=== PATIENT | male | born 1960 | race Caucasian/White ===

== ENCOUNTER → 2016-10-14 | Outpatient (CLI) | payer BC, OTHER ==
[~2016-10-14] MED LIST: ASPI81TA21 PO; ATOR-22 PO; CHOL400C7 PO; FISHOIL PO; LISI-461 PO; MULTTAB58 PO
[2016-10-14 13:37] LABS: ESTIMATED AVERAGE GLUCOSE 120 mg/dl; HA1C FLAG Normal (Normal)
[2016-10-14 13:39] LABS: ALT/SGPT 83 U/L (12-78); AST/SGOT 51 U/L (15-37); BLOOD UREA NITROGEN 18 mg/dl (7-18); BUN/CREATININE RATIO 15.2 (10-20); CALCIUM 9.1 mg/dl (8.5-10.1); CARBON DIOXIDE 27 mmol/L (21-32); CHLORIDE 103 mmol/L (98-107); CHOLESTEROL 230 mg/dl (0-200); GLUCOSE 113 mg/dl (70-99); POTASSIUM 4.3 mmol/L (3.5-5.1); SODIUM 141 mmol/L (136-145); TRIGLYCERIDES 368 mg/dl (0-150); VERY LOW DENSITY LIPOPROT CALC 74 mg/dl
[2016-10-14 13:42] LABS: CHOLESTEROL/HDL RATIO 4.5; HDL CHOLESTEROL 51 mg/dl; LDL CHOLESTEROL CALCULATED 105 mg/dl
== END | disposition home or self-care (01) ==
LOC: C.LABPVFM 10:20
PROVIDERS: ATTEND Family Medicine
DX: E78.5 Hyperlipidemia, unspecified (principal); I10 Essential (primary) hypertension; R73.09 Other abnormal glucose

== ENCOUNTER → 2017-06-09 | Outpatient (CLI) | payer BC ==
[2017-06-09 13:39] LABS: ALT/SGPT 83 U/L (12-78); BLOOD UREA NITROGEN 23 mg/dl (7-18); CALCIUM 9.6 mg/dl (8.5-10.1); CARBON DIOXIDE 24 mmol/L (21-32); CHLORIDE 103 mmol/L (98-107); CHOLESTEROL 259 mg/dl (0-200); GLUCOSE 131 mg/dl (70-99); POTASSIUM 4.2 mmol/L (3.5-5.1); SODIUM 138 mmol/L (136-145); TRIGLYCERIDES 644 mg/dl (0-150)
[2017-06-09 13:41] LABS: AST/SGOT 52 U/L (15-37)
[2017-06-09 13:49] LABS: CHOLESTEROL/HDL RATIO 6.2; HDL CHOLESTEROL 42 mg/dl
== END | disposition home or self-care (01) ==
LOC: C.LABPVFM 09:23
PROVIDERS: ATTEND Family Medicine
DX: E78.5 Hyperlipidemia, unspecified (principal); I10 Essential (primary) hypertension

== ENCOUNTER → 2017-07-02 | Outpatient (CLI) | payer BC ==
--- NOTE | 2017-07-02 09:23 | DIAGNOSTIC IMAGING REPORT ---
ABDOMINAL ULTRASOUND COMPLETE HISTORY: R79.89 Abnormal LFTs elev. lipids also trigs 600+ eval pancreas al. COMPARISON: None. FINDINGS: Pancreas: The pancreas demonstrates a normal echotexture. Liver: The liver is echogenic consistent with fatty change. 19 m in length. Small area of focal fatty sparing adjacent to the gallbladder fossa. Gallbladder: No gallbladder wall thickening. No gallstones. CBD: 4 mm. Kidneys: No hydronephrosis. Mild cortical lobulation/scarring bilaterally. Spleen: Normal in size. Aorta: Normal in caliber. Mild scattered calcified plaque. IVC: Patent. IMPRESSION: 1. The pancreas is within normal limits. 2. Mild hepatomegaly demonstrating fatty change. Electronically signed by: Dwayne Vivar M.D. 07/02/2017 9:22 AM Dictated Date/Time: 07/02/2017 9:16 AM
== END | disposition home or self-care (01) ==
LOC: C.ULTR 08:39
PROVIDERS: ATTEND Family Medicine
DX: R79.89 Other specified abnormal findings of blood chemistry (principal); R16.0 Hepatomegaly, not elsewhere classified

== ENCOUNTER → 2017-08-24 | Outpatient (CLI) | payer BC ==
[2017-08-24 18:30] LABS: ALT/SGPT 54 U/L (12-78); AST/SGOT 30 U/L (15-37); BLOOD UREA NITROGEN 25 mg/dl (7-18); BUN/CREATININE RATIO 19.4 (10-20); CALCIUM 9.2 mg/dl (8.5-10.1); CARBON DIOXIDE 26 mmol/L (21-32); CHLORIDE 105 mmol/L (98-107); GLUCOSE 115 mg/dl (70-99); POTASSIUM 4.3 mmol/L (3.5-5.1); SODIUM 136 mmol/L (136-145)
[2017-08-24 18:33] LABS: ALKALINE PHOSPHATASE 80 U/L (45-117)
[2017-08-25 07:06] LABS: ESTIMATED AVERAGE GLUCOSE 131 mg/dl; HA1C FLAG Normal (Normal)
== END | disposition home or self-care (01) ==
LOC: C.LABPVFM 15:42
PROVIDERS: ATTEND Family Medicine
DX: R79.89 Other specified abnormal findings of blood chemistry (principal); R73.09 Other abnormal glucose

== ENCOUNTER → 2017-09-20 | Outpatient (CLI) | payer BC ==
[~2017-09-20] MED LIST changes: +ASPI-319 PO; -ASPI81TA21 PO
--- NOTE | 2017-09-20 12:16 | DIAGNOSTIC IMAGING REPORT ---
R FOOT MIN 3 VIEWS ROUTINE CLINICAL HISTORY: FOOT PAIN R pain COMPARISON: None. DISCUSSION: The bones and joint spaces appear intact. There is no evidence of fracture, dislocation or bony disease. Heel spur. IMPRESSION: Heel spur. Otherwise negative study. The above report was generated using voice recognition software. It may contain grammatical, syntax or spelling errors. Electronically signed by: Angel Castle M.D. 09/20/2017 12:14 PM Dictated Date/Time: 09/20/2017 12:13 PM
== END | disposition home or self-care (01) ==
LOC: C.RADPV 11:55
PROVIDERS: ATTEND Nurse Practitioner Family
DX: M77.31 Calcaneal spur, right foot (principal)

== ENCOUNTER → 2018-01-22 | Outpatient (CLI) | payer BC ==
[2018-01-22 13:28] LABS: ALBUMIN 3.8 gm/dl (3.4-5.0); ALT/SGPT 63 U/L (12-78); AST/SGOT 36 U/L (15-37); BLOOD UREA NITROGEN 20 mg/dl (7-18); CALCIUM 9.2 mg/dl (8.5-10.1); CARBON DIOXIDE 24 mmol/L (21-32); CREATININE 1.23 mg/dl (0.60-1.40); GLUCOSE 127 mg/dl (70-99); SODIUM 136 mmol/L (136-145)
[2018-01-22 13:30] LABS: ALKALINE PHOSPHATASE 77 U/L (45-117); TOTAL PROTEIN 7.8 gm/dl (6.4-8.2)
== END | disposition home or self-care (01) ==
LOC: C.LABPVFM 08:03
PROVIDERS: ATTEND Family Medicine
DX: E78.5 Hyperlipidemia, unspecified (principal); I10 Essential (primary) hypertension; R73.01 Impaired fasting glucose; J45.909 Unspecified asthma, uncomplicated

== ENCOUNTER 2023-09-03 10:57 | Observation (INO) ==
--- NOTE | 2023-08-08 11:15 | PAT Medication Instructions ---
Medication Instructions Date of Service August 08, 2023 Home Medications Medication Instructions Recorded blood-glucose meter (OneTouch #1 ea 08/12/19 Ultra2 Meter) blood sugar diagnostic (OneTouch #50 ea 03/11/20 Ultra Blue Test Strip) lancets (OneTouch UltraSoft #50 ea 03/11/20 Lancets) probenecid 500 mg-colchicine 0.5 1 tab PO BID PRN gout #60 tabs 03/11/20 mg tablet albuterol sulfate 90 mcg/actuation 1 inh inhalation QID PRN shortness 12/27/22 aerosol inhaler (Ventolin HFA) of breath or wheezing #18 grams labetalol 100 mg tablet 100 mg PO TID #270 tabs 06/05/23 probenecid 500 mg-colchicine 0.5 mg tablet 1 tab PO BID PRN gout albuterol sulfate 90 mcg/actuation aerosol inhaler (Ventolin HFA) 1 inh inhalation QID PRN shortness of breath or wheezing labetalol 100 mg tablet 100 mg PO TID allopurinol 100 mg tablet 100 mg PO QPM amlodipine 5 mg tablet 5 mg PO QAM aspirin 81 mg chewable tablet 81 mg PO QAM atorvastatin 40 mg tablet 40 mg PO QPM cholecalciferol (vitamin D3) 25 mcg (1,000 unit) capsule (Vitamin D3) 25 mcg PO QPM fenofibrate nanocrystallized 145 mg tablet 145 mg PO QPM lisinopril 40 mg tablet 40 mg PO QAM metformin 500 mg tablet 500 mg PO QAM multivitamin 1 tab PO QAM omega 7-ghz-lgj-fish oil 1,200 mg (144 mg-216 mg) capsule (Fish Oil) 2,400 cap PO QAM ASK your prescriber and surgeon aspirin 81 mg chewable tablet 81 mg PO QAM STOP taking 2 weeks before surgery (or as soon as possible if surgery is within 2 weeks) omega 4-ckk-gvn-fish oil 1,200 mg (144 mg-216 mg) capsule (Fish Oil) 2,400 cap PO QAM STOP taking 48 hours before surgery probenecid 500 mg-colchicine 0.5 mg tablet 1 tab PO BID PRN gout fenofibrate nanocrystallized 145 mg tablet 145 mg PO QPM DO NOT take the morning of surgery lisinopril 40 mg tablet 40 mg PO QAM metformin 500 mg tablet 500 mg PO QAM multivitamin 1 tab PO QAM Take morning of surgery With a small sip of water, OTHERWISE NOTHING TO EAT OR DRINK AFTER MIDNIGHT: albuterol sulfate 90 mcg/actuation aerosol inhaler (Ventolin HFA) 1 inh inhalation QID PRN shortness of breath or wheezing (use if needed; please bring rescue inhaler with you to hospital day of surgery if possible) labetalol 100 mg tablet 100 mg PO TID amlodipine 5 mg tablet 5 mg PO QAM Take evening before surgery albuterol sulfate 90 mcg/actuation aerosol inhaler (Ventolin HFA) 1 inh inhalation QID PRN shortness of breath or wheezing (if needed) labetalol 100 mg tablet 100 mg PO TID allopurinol 100 mg tablet 100 mg PO QPM atorvastatin 40 mg tablet 40 mg PO QPM cholecalciferol (vitamin D3) 25 mcg (1,000 unit) capsule (Vitamin D3) 25 mcg PO QPM Other Notes If you have any questions please call us at [phone] or [phone] or [phone] or [phone]
--- NOTE | 2023-08-17 13:59 | Anesthesiology Consultation ---
Date of Service August 17, 2023 Assessment & Plan (1) Encounter for pre-operative examination: - check BSG am DOS. - patient unable to provide urine specimen at PAT visit. He plans to complete UA at [facility] lab. Outpatient joint assessment: Patient is currently scheduled for inpatient pathway. If re-evaluated and patient/surgeon requests outpatient pathway, patient is acceptable candidate for outpatient joint program from anesthesia standpoint pending surgeon's office assessment of pt motivation/support/completion of same day joint program preop requirements. Chart Review Chart Review: Pending: Refer to Additional Notes / Consult section and Patient seen in Pre Admission Testing Teaching & Discussion Pre-Anesthesia Teaching/Discussion Notes: Instructed NPO after midnight before surgery, except medications with 15 cc of water. Medication instructions provided according to the [facility] guidelines. History Surgery Operation Date: 09/03/23 09:50 Proposed Procedures p Left Total Shoulder Arthroplasty, Open Subacromial Decompression, Bursectomy and Biceps Tenodesis - Aristeo Early MD Height/Weight Height: 5 ft 8 in Weight: 87.1 kg Allergies Allergy/AdvReac Type Severity Reaction Status Date / Time meloxicam Allergy Unknown Rash Verified 08/08/23 10:05 omeprazole Allergy Unknown Rash Verified 08/08/23 10:05 Medications Home Medications Medication Instructions Recorded Confirmed Last Taken blood-glucose meter (OneTouch #1 ea 08/12/19 06/28/23 Unknown Ultra2 Meter) blood sugar diagnostic (OneTouch #50 ea 03/11/20 06/28/23 Unknown Ultra Blue Test Strip) lancets (OneTouch UltraSoft #50 ea 03/11/20 06/28/23 Unknown Lancets) probenecid 500 mg-colchicine 0.5 1 tab PO BID PRN gout #60 tabs 03/11/20 08/08/23 Unknown mg tablet albuterol sulfate 90 mcg/actuation 1 inh inhalation QID PRN shortness 12/27/22 08/08/23 Unknown aerosol inhaler (Ventolin HFA) of breath or wheezing #18 grams labetalol 100 mg tablet 100 mg PO TID #270 tabs 06/05/23 08/08/23 Unknown allopurinol 100 mg tablet 100 mg PO QPM 08/08/23 08/08/23 Unknown amlodipine 5 mg tablet 5 mg PO QAM 08/08/23 08/08/23 Unknown aspirin 81 mg chewable tablet 81 mg PO QAM 08/08/23 08/08/23 Unknown atorvastatin 40 mg tablet 40 mg PO QPM 08/08/23 08/08/23 Unknown cholecalciferol (vitamin D3) 25 25 mcg PO QPM 08/08/23 08/08/23 Unknown mcg (1,000 unit) capsule (Vitamin D3) fenofibrate nanocrystallized 145 145 mg PO QPM 08/08/23 08/08/23 Unknown mg tablet lisinopril 40 mg tablet 40 mg PO QAM 08/08/23 08/08/23 Unknown metformin 500 mg tablet 500 mg PO QAM 08/08/23 08/08/23 Unknown multivitamin 1 tab PO QAM 08/08/23 08/08/23 Unknown omega 6-vco-sbj-fish oil 1,200 mg 2,400 cap PO QAM 08/08/23 08/08/23 Unknown (144 mg-216 mg) capsule (Fish Oil) cetirizine 10 mg tablet 10 mg PO QAM PRN allergies 08/17/23 08/17/23 Unknown Additional Notes: Patient also takes cetirizine prn seasonal allergies. He was instructed and it was written on provided medication instructions to not take cetirizine DOS. He verbalized understanding and agreement, denied questions, concerns or additional medications. Past Medical History Medical History (Updated 08/17/23 @ 14:10 by Holly Rico PA-C) History of gout last episode several yrs ago Prediabetes on metformin HLD (hyperlipidemia) HTN (hypertension) controlled, stable per pt; white coat HTN Asthma rare use of PRN inh; last rescue inhaler use several months ago Diverticulosis denies hx diverticulitis Patient denies h/o stroke, seizures, heart attack, heart failure, blood clots/DVTs or blood transfusions. Exercise / Class Metabolic Activity II 4-5 Yardwork/Stairs/Walk up hill (denies chest discomfort or shortness of breath with 1 FOS) Past Family History Family History Mother Colorectal cancer Father Myocardial infarction Denies family history of Ovarian cancer Prostate cancer Breast cancer Past Surgical History Surgical History (Updated 08/17/23 @ 14:11 by Holly M. Onink, PA-C) History of vasectomy History of colonoscopy History of cataract surgery 08/22/10-Left 02/24/13-Right H/O thumb surgery 08/26/08-Left H/O wrist surgery 08/2010-Right Biceps tendon tear Repair-06/22/03 History of knee surgery 10/23/01-Left (Meniscus Repair) 08/30/05-Right (Meniscus Repair) History of rotator cuff surgery 08/26/08-Left 07/21/13-Right 05/27/19-Left Past Anesthesia History No Hx of Anesthesia Complications and No Family Hx of Anesthesia Complications History of PONV No Hx of PONV and No Hx of Motion Sickness Social History Smoking Status: Former smoker Do You Dip or Chew Tobacco: No Smoking End Date: 50 years ago Hx Alcohol Use: Yes Alcohol type: beer and wine alcohol intake frequency: a few times a week Hx Substance Use: No substance use type: does not use Review of Systems Patient denies chest pain, shortness of breath, dyspnea on exertion, snoring, witnessed apneas, reflux, fever, chills, cough, wheezing, or palpitations. Physical Exam Vital Signs Vitals BP 125/84 P 74 TEMP 98.1 SP02 97% on RA RESP 18 Physical Patient resting comfortably in chair in no acute distress, alert and oriented, responding appropriately throughout visit Full cervical extension range of motion without pain TMD 3.5 finger breadths Mallampati Score 1 Dentition: several caps/crowns, denies chipped or loose teeth, implants or bridges Lungs: normal respiratory effort. Good air movement, clear throughout to auscultation, no adventitious breath sounds Cardiac: regular rate and rhythm, no murmurs noted Carotid arteries: negative bruit bilat Lab Results Anesthesia Preop Results Results Anesthesia Widget: WBC 5.78 K/ul (4.8-10.8) 08/17/23 Hgb 13.1 g/dl (14.0-18.0) L 08/17/23 Hct 37.8 % (42.0-52.0) L 08/17/23 Plt 262 K/uL (130-400) 08/17/23 Na 139 mmol/L (136-145) 08/17/23 K 4.2 mmol/L (3.5-5.1) 08/17/23 Cl 106 mmol/L (98-107) 08/17/23 CO2 25 mmol/L (21-32) 08/17/23 BUN 29 mg/dl (6-23) H 08/17/23 Creat 1.43 mg/dl (0.6-1.4) H 08/17/23 Glucose Level 124 mg/dl (70-99(Fasting)) H 08/17/23 PT 10.7 Seconds (9.0-12.0) 08/17/23 PTT 31.6 Seconds (21.0-31.0) H 08/17/23 INR 1.0 (0.9-1.1) 08/17/23 TSH 3.529 uIu/ml (0.300-4.500) 06/26/23 HA1c 5.9 % (4.5-5.6) H 06/26/23 Blood Type O Negative 08/17/23 Antibody Screen NEGATIVE 08/17/23 Testing Laboratory Results A1c 06/26/23: 5.9% Electrocardiogram Date: 08/17/23 NSR, rate 70 bpm Chest X-Ray Date: 08/17/23 1. No active disease in the chest. 2. There is apparent subluxation of the left humeral head. Correlate clinically.
--- NOTE | 2023-08-25 08:45 | History & Physical Report ---
Date of Service August 25, 2023 Assessment & Plan (1) Primary osteoarthritis, left shoulder: Plan: Treatment options discussed with the patient and they wish to proceed with surgical management. Risks, benefits and alternatives to surgery including but not limited to infection, DVT, pain, stiffness, need for revision surgery, damage to blood vessels, damage to nerves, PE, , were discussed with the patient and they wish to proceed. Plan for left total shoulder arthroplasty, subacromial decompression, bursectomy, biceps tenodesis scheduled for September 03 at [facility] with Dr. Early. All questions answered. Patient will follow-up postoperatively. History of Present Illness Chief Complaint: Left shoulder pain Primary Care Provider: Eris Prieto, 63-year-old male with past medical history significant for asthma, high cholesterol, hypertension who presents with ongoing left shoulder pain. Pain is interfering with his daily activities. He has prior history of arthroscopy with rotator cuff repair. He would like to proceed with surgical management. Patient denies headaches, sweats, fevers, chills, double vision, blurred vision, cough, sore throat, dysphagia, chest pain, sob, wheezing, n/v/d/c, numbness, tingling, fatigue, urinary symptoms, mood disorders. ROS positive for left shoulder pain and stiffness. Allergies Allergy/AdvReac Type Severity Reaction Status Date / Time meloxicam Allergy Unknown Rash Verified 08/21/23 13:56 omeprazole Allergy Unknown Rash Verified 08/21/23 13:56 Home Medications Medication Instructions Recorded Confirmed Type blood-glucose meter (OneTouch #1 ea 08/12/19 08/21/23 Rx Ultra2 Meter) blood sugar diagnostic (OneTouch #50 ea 03/11/20 08/21/23 Rx Ultra Blue Test Strip) lancets (OneTouch UltraSoft #50 ea 03/11/20 08/21/23 Rx Lancets) probenecid 500 mg-colchicine 0.5 1 tab PO BID PRN gout #60 tabs 03/11/20 08/21/23 Rx mg tablet albuterol sulfate 90 mcg/actuation 1 inh inhalation QID PRN shortness 12/27/22 08/21/23 Rx aerosol inhaler (Ventolin HFA) of breath or wheezing #18 grams labetalol 100 mg tablet 100 mg PO TID #270 tabs 06/05/23 08/21/23 Rx allopurinol 100 mg tablet 100 mg PO QPM 08/08/23 08/21/23 History amlodipine 5 mg tablet 5 mg PO QAM 08/08/23 08/21/23 History aspirin 81 mg chewable tablet 81 mg PO QAM 08/08/23 08/21/23 History atorvastatin 40 mg tablet 40 mg PO QPM 08/08/23 08/21/23 History cholecalciferol (vitamin D3) 25 25 mcg PO QPM 08/08/23 08/21/23 History mcg (1,000 unit) capsule (Vitamin D3) fenofibrate nanocrystallized 145 145 mg PO QPM 08/08/23 08/21/23 History mg tablet lisinopril 40 mg tablet 40 mg PO QAM 08/08/23 08/21/23 History metformin 500 mg tablet 500 mg PO QAM 08/08/23 08/21/23 History multivitamin 1 tab PO QAM 08/08/23 08/21/23 History omega 8-ehc-mtk-fish oil 1,200 mg 2,400 cap PO QAM 08/08/23 08/21/23 History (144 mg-216 mg) capsule (Fish Oil) cetirizine 10 mg tablet 10 mg PO QAM PRN allergies 08/17/23 08/21/23 History Past Med/Surg History Medical History (Updated 08/25/23 @ 08:45 by Antoine Frazier PA-C) History of gout last episode several yrs ago Asthma rare use of PRN inh; last rescue inhaler use several months ago Diverticulosis denies hx diverticulitis Surgical History History of vasectomy History of colonoscopy History of cataract surgery 08/22/10-Left 02/24/13-Right H/O thumb surgery 08/26/08-Left H/O wrist surgery 08/2010-Right Biceps tendon tear Repair-06/22/03 History of knee surgery 10/23/01-Left (Meniscus Repair) 08/30/05-Right (Meniscus Repair) History of rotator cuff surgery 08/26/08-Left 07/21/13-Right 05/27/19-Left Family History Mother Colorectal cancer Father Myocardial infarction Denies family history of Ovarian cancer Prostate cancer Breast cancer Social History Smoking Status: Former smoker Age Started Using Tobacco: 16; Age Quit Using Tobacco: 19; Smoking End Date: 50 years ago; Second Hand Exposure: Yes ( smokes); Do You Dip or Chew Tobacco: No; Tobacco Cessation Education Requested by Patient: No Hx Alcohol Use: Yes Alcohol type: beer and wine Hx Substance Use: No Preferred Language: Uzbek Communication Ability: Effective Visual Impairment: No Limitations Hearing Ability: Normal Willow Machine Tender Required: No Beliefs That Will Affect Care: None marital status: Single Current Living Situation: Spouse current occupational status: employed 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 Feels Safe at Home: Yes Safety Concerns: Feels Safe At This Time caffeine: Yes Dental Care, Regularly: Yes Physical Activity Frequency: Does not Exercise Seatbelt Use: always Sunscreen Use: Yes Assistive Devices: Glasses Review of Systems All systems reviewed & are unremarkable except as noted in HPI & below Physical Exam Constitutional: well developed and well nourished; no acute distress Eyes: PERRL, conjunctivae normal, anicteric sclerae ENMT: external ear and nose normal, oropharynx normal Neck: trachea midline, no thyromegaly Respiratory: normal respiratory effort, lungs clear to auscultation Cardiovascular: RRR, no murmur, no edema Musculoskeletal: Left shoulder: Anterior glenoid tenderness. Positive impingement signs. Crepitation with range of motion. Active painful range of motion. Forward flexion and abduction and 180 degrees. Pain with strength testing. 5 -/5 abduction, 4+/5 external rotation, 5/5 internal rotation. Skin: no rashes, warm and dry Neurologic: patellar DTR's 2+ bilat, sensation intact Psychiatric: A+Ox3, euthymic affect Results & Data Diagnostic Findings Left shoulder radiographs demonstrate advanced osteoarthritis glenohumeral joint, [id number] with periarticular osteophytes. Postoperative changes consistent with prior distal clavicle excision. MRI demonstrates intact rotator cuff. There is substantial subacromial bursitis and recurrent spur..
[~2023-09-03 10:57] MED LIST changes: +ACETAMINOPHEN 500 MG TAB PO SCH; +ALLERGY Noted to ORDERED Medication SCH; -ASPI-319 PO; -ATOR-22 PO; +BUPIVACAINE 0.5 % 5 MG/1 ML PF 10ML VIAL ONE; -CHOL400C7 PO; +CeleBREX 200 MG CAP PO SCH; +DEXAMETHASONE SOD INJ 4 MG/ML VIAL ONE; +FAMOTIDINE 20 MG TAB PO SCH; -FISHOIL PO; +GABAPENTIN 300 MG CAP PO SCH; +LIDOCAINE 2% 2 ML VIAL/AMP(20MG/ML) INFIL ONE; -LISI-461 PO; +LR 15ML/HR IV SCH; +LR 60ML/HR IV SCH; +METOCLOPRAMIDE HCL 10 MG TABLET PO SCH; +MIDAZOLAM HCL 1 MG/ML 2ML VIAL ONE; -MULTTAB58 PO; +ONDANSETRON INJ 2 MG/ML 2 ML VIAL ONE; +PROPOFOL IV EMULSION 10 MG/ML 20 ML VIAL IV ONE; +ROCURONIUM BROMIDE 10 MG/ML 5 ML VIAL IV ONE; +SUGAMMADEX SODIUM 200 MG/2 ML VIAL IV ONE; +TRANEXAMIC ACID 1,000 MG **IV Intra-op IV SCH; +TRANEXAMIC ACID 1,000 MG **IV Pre-op IV SCH; +ceFAZolin 2000MG 2,000 MG/15 ML SYR IV SCH; +fentaNYL citrate PF 100 MCG/2 ML VIAL ONE
[2023-09-03] MEDS ORDERED: ATROPINE SULFATE 0.1 MG/ML 10ML SYR IV PRN (12:22)
[2023-09-03] MEDS ORDERED: ONDANSETRON INJ 2 MG/ML 2 ML VIAL IV PRN ×2 (12:22→17:33)
[2023-09-03] MEDS ORDERED: ePHEDrine sulfate 50 MG/ML AMP IV PRN (12:22)
[2023-09-03] MEDS ORDERED: fentaNYL citrate PF 100 MCG/2 ML VIAL IV PRN (12:22)
--- NOTE | 2023-09-03 12:28 | History & Physical Bridge Note ---
Date of Service September 03, 2023 History & Physical Bridge Note I have examined the patient, reviewed the History & Physical and in the interval since the performance of the History & Physical I have noted the following changes of clinical significance: no changes noted
[2023-09-03] MEDS ORDERED: EpINEphrine HCL INJ 1 MG/ML 1ML SYRINGE IR ONE (13:16)
--- NOTE | 2023-09-03 16:24 | Operative Report ---
Post Operative Report Pre & Post Diagnosis Operation Date: 09/03/23 12:30 Pre-Op Diagnosis: Left Shoulder Osteoarthritis,Subacromial Impingement Syndrome, subacromial bursitis, history of previous open subacromial decompression and status post subsequent arthroscopic rotator cuff repair including distal clavicle excision. Post-Op Diagnosis: Left Shoulder Osteoarthritis, subacromial Impingement Syndrome, subacromial bursitis Associated with old suture material post rotator cuff repair, status post history of previous open subacromial decompression and subsequent arthroscopic rotator cuff repair including distal clavicle excision with intact rotator cuff repair and biceps tenosynovitis tendinopathy with calcified degenerative glenoid labral tears. 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 Antoine LUX Estimated Blood Loss 125 Findings Consistent with Post-Op Diagnosis Specimens none Drains 2 Hemovac Anesthesia Type General Regional Complications none Disposition Disposition: Recovery Room Indications 63-year-old male with ongoing chronic left shoulder pain with history of open subacromial decompression in the past and subsequent arthroscopic rotator cuff repair years later with intact rotator cuff repair but marked subacromial bursitis recurrent spurs noted on radiographs and MRI with intact rotator cuff repair by MRI but advanced glenohumeral osteoarthritis with grade 4 osteoarthritic changes glenohumeral joint. There is also associated biceps tenosynovitis. Description of Procedure Patient was placed placed under regional block and general anesthetic. The Left upper extremity had a towel roll placed on the medial border of the scapula and translated to the side of the bed so it could be manipulated off of the bed as necessary. A foam headrest was placed and protective eyewear was placed. Lower extremities were well-padded. Patient was positioned in a beach chair position approximately 40 degrees. Shoulder exam demonstrated some generalized ligamentous laxity with full range of motion but [id number] crepitation. He had old arthroscopic scars that were healed and an old longitudinal scar across the lateral shoulder from prior open rotator cuff surgery. The Left upper extremity was prepped and draped in sterile fashion. A deltopectoral approach was performed with a longitudinal incision in a deltopectoral interval. The skin was incised sharply and the subcutaneous flaps were elevated. The cephalic vein was dissected out and retracted laterally with the deltoid. the vein was not typical in size and there were 2 branches distally that merged into a medium size vein proximally. The clavipectoral fascia was divided at the lateral margin of the conjoined tendon and extended up to the CA ligament. A self-retaining retractor was placed. Biceps findings demonstrated Large fluid collection in the biceps tendon with biceps tenosynovitis and proximal biceps tendinopathy with widening of biceps intra-articularly. there was a large bursa collection in the subacromial space that was surrounding areas of prior suture material from rotator cuff repair which was noted to be intact. Some of the suture knots were prominent and appear to be rubbing under recurrent spurs under the acromion. Specifically there was an anterior spur and there was some lateral spurring as well and under the acromion. A thorough bursectomy was performed in the subacromial space and the old sutures were removed with excisional debridement using a scalpel rongeur tenotomy scissors with all prominent sutures being removed. The periosteum and bursa on the undersurface of the acromion was resected and then a pneumatic bur was used to bur down the spurs back to the flat undersurface of the acromion and then a Tiemann rasp was used to finish off the undersurface rasping creating a smooth surface.The upper 1 cm the pectoralis was released for inferior exposure. The Biceps tendon was then tenodesed to the pectoralis with xuvexj-[id number] #2 FiberWire sutures And a whipstitch type suture repair. The chronic tenosynovitis was resected and the proximal biceps resected. Bone spurs and the bicipital groove were resected .The circumflex vessels were tied off with silk ties and divided laterally. The subscapularis muscle fibers were at the level of the circumflex vessels dissection was taken down to the capsule and a Kitner elevator was used to free up the inferior fibers of the subscapularis muscle off of the capsule and then placing a blunt Hohmann retractor protecting the axillary nerve inferiorly. A blunt Hohmann retractors were placed between the inferior located axillary nerve and the capsule. This was verified with a tug test. The rotator interval was opened up and extended down to the glenoid. The subscapularis was taken down with a transtendinous incision leaving a cuff of tissue for repair on the lesser tuberosity. The incision was carried through the subscapularis to the capsule and then subperiosteally along the inferior capsule exposing the inferior humeral osteophytes. These demonstrated Osteophytes extending from anteriorly to posteriorly along the inferior humerus moderately large in size. They extended down onto the neck of the humerus. The osteophytes were resected with an artist chisel and rongeur. The humeral head findings demonstrated Majority of the humeral head being eburnated bone with some bone loss and flattening of the head. After the osteophytes were resected humeral head is retracted posterior to the glenoid with a Fukuda retractor. The glenoid findings demonstrated The superior glenoid and posterior glenoid still had articular surface centrally and anteriorly and inferiorly there was eburnated bone. The inferior glenoid labrum had degenerative tearing with large Deposits Embedded into the Labrum and the Superior Labrum Was Degenerative Fraying from Anterior to Posterior Consistent with a Chronic Type I SLAP Tear. The labrum was resected and the Remaining Intra-Articular biceps tendon Was Resected. I Resected All the Degenerative Labral Tears Sharply but Did Not Do Any Capsular Releases off of the Glenoid As the Patient Had Ligamentous Laxity and I Did Not Want to Create Any Instability. the humeral head was reexposed with retractors and humeral head was sized for a size 50 x 46 Mm Arthrosurface OVO motion humeral head. The central guidepin was placed. The threaded stop for the reamer was drilled into the head. This was placed at the appropriate depth. The head reamer was used. All debris was irrigated out of the joint. The flat head resection reamer was used. The remaining section of bone was removed with a saw. The humerus was then re tracted posteriorly again with the Fukuda retractor posterior to the glenoid. The guide for the glenoid component was placed and the guide pin was advanced to the appropriate depth. Glenoid reamers were utilized. The depth gauge verified the depth of the reaming. The drill hole for the central post was placed. Trial component was placed at satisfactory position and depth. Trial was removed and the glenoid reamed area was prepared for cementing with several drill holes placed around the reamed area to accept cement. After further irrigation the reamed area was packed with epinephrine soaked tampon sponges. The Palacos cement was vacuum mixed. The cement was injected into the glenoid and compressed with a finger compression device. More cement was placed on the back of the glenoid component and it was inserted into the reamed area in appropriate position with the suction device that held onto the component. When the component was appropriate seating position the suction was removed as well as a suction device and direct pressure was placed on of the component and excess cement was cleared and the component was held in position until the cement fully cured. Attention was taken back to the humerus. The humeral head guide was placed onto the humeral head in the appropriate position. The guidepin was readvanced in position. The 12 mm tapered post was inserted to appropriate depth with excellent fixation. At this time 3 drill holes were made along the lateral surface of the lesser tuberosity spanning the distance of the subscapularis attachment and 3 transosseous #5 FiberWire sutures were placed for repair of the subscapularis. After copious irrigation the Johns taper of the tapered post was dried and then the humeral component size 50 x 46 OVO motion was impacted onto the taper post with stable fixation. This was assessed with a Mcdonnell elevator to be stable. This was then reduced to the glenoid and range of motion and stability was assessed. After copious irrigation the subscapularis was repaired with the #5 FiberWire sutures using Kevan-Sinan suture technique and lateral row soft tissue repair with #2 FiberWire [id number] sutures and the rotator interval was closed in maximal external rotation with interrupted #2 FiberWire sutures. the pectoralis release was repaired with [id number] #2 FiberWire passing the suture through the biceps tendon to reinforce the tenodesis. Range of motion was assessed demonstrating 170 Degrees Forward Flexion, 110 Degrees Abduction and 70 to 80 Degrees External Rotation without any tension on the repair. The wound was copiously irrigated and 2 Hemovac drains were placed brought out laterally. The deltopectoral interval was repaired with vvnufp-ak-knicb #1 Vicryl sutures and the subcutaneous tissues were closed into 2-0 Vicryl sutures and skin closed with valeri and Sterile Dressings were applied and a shoulder immobilizer. The patient tolerated the procedure well .Antoine LUX ,my physician career services assistant assisted in the procedure with arm positioning soft tissue retraction instrument management suture management and performed the subcutaneous and skin closure dressings and shoulder immobilizer application and will participate in the postop care the patient. I attest to the content of the Intraoperative Record and any orders documented therein. Any exceptions are noted below.
--- NOTE | 2023-09-03 17:02 | Anesthesiology Progress Note ---
Date of Service September 03, 2023 Anesthesia Post Procedure Vital Signs Vital Signs: Temp Pulse Resp BP Pulse Ox O2 Del Method O2 Flow Rate 09/03/23 16:55 36.3 C L 76 18 128/77 94 Room Air 09/03/23 16:45 74 18 141/83 H 98 Oxymask 4 09/03/23 16:35 72 22 142/76 H 98 Oxymask 6 09/03/23 16:25 36.1 C L 65 16 136/72 98 Oxymask 8 09/03/23 11:32 36.9 C 72 20 159/88 H 97 Room Air Pain Intensity Left Shoulder: Pain Intensity: 0 Transfer of Care Handoff Completed per policy Notes Mental Status: alert / awake / arousable Patient Amnestic to Procedure: Yes Nausea / Vomiting: adequately controlled Pain: adequately controlled Airway Patency, RR, SpO2: stable & adequate BP & HR: stable & adequate Hydration State: stable & adequate Anesthetic Complications: no major complications apparent and Pt Satisfied with anesthetic care
[2023-09-03] MEDS ORDERED: ALBUTEROL HFA 8 GM INHALER INH PRN (17:33)
[2023-09-03] MEDS ORDERED: oxyCODONE HCL IR 5 MG TAB (IMMEDIATE RELEASE) PO PRN (17:33)
[2023-09-03] MEDS ORDERED: bisacodyL 10 MG SUPP PR PRN (17:33)
[2023-09-03] MEDS ORDERED: CETIRIZINE HCL 10 MG TABLET PO PRN (17:33)
[2023-09-03] MEDS ORDERED: TAMSULOSIN HCL 0.4 MG CAP PO PRN (17:33)
[2023-09-03] MEDS ORDERED: MAGNESIUM HYDROXIDE SUSP 30 ML UDC PO PRN (17:33)
[2023-09-03] MEDS ORDERED: PHARMACY GLYCEMIC MGMT CONSULT PRN (17:33)
[2023-09-03] MEDS ORDERED: HYDROmorphone INJ 0.5 MG/0.5 ML SYR IV PRN (17:33)
[2023-09-03] MEDS ORDERED: METOCLOPRAMIDE HCL INJ 5 MG/ML 2 ML VIAL IV PRN (17:33)
[2023-09-03] MEDS ORDERED: NALOXONE HCL 0.4 MG/1 ML VIAL/CARP IV PRN (17:33)
[2023-09-03] MEDS: SODIUM CHLORIDE 0.9% 1,000 ML IV SCH (17:52)
--- NOTE | 2023-09-03 18:01 | Hospitalist Consultation ---
Date of Consultation September 03, 2023 Assessment & Plan (1) Primary osteoarthritis, left shoulder: s/p Left OVO Motion stemless Total Shoulder Arthroplasty, Open revision Subacromial Decompression, subacromial Bursectomy and excisional debridement subacromial suture material and primary Biceps tenosynovectomy and Tenodesis, debridement glenoid labral tear(Left) - Aristeo Early MD EBL 125cc. Hemovac in place Pain control/bowel regimen/PT/OT/DVT prophylaxis per primary service Asked RN to provide incentive spirometer to prevent any issues following shoulder surgery, now on room air Labs in AM (2) Obesity, diabetes, and hypertension syndrome: DM A1c 5.9 Home meformin on hold, pharmacy consulted for glycemic control Monitor BSGs HTN BP stable 125/79 Home medications include amlodipine 5mg, labetalol 100mg TID, lisinopril 40mg daily --> Will hold lisinopril 40mg for AM until BP/renal function evaluated given Cr 1.43 on pre-op labs. No recent NSAID use reported Monitor BP HLD Continue Lipitor 40mg/ASA 81mg daily (3) Asthma: continue home inhaler as needed, takes zyrtec prn and reports more seasonal symptoms but no recent exacerbations or need for inhaler and reports can't remember last time he had an issue Incentive spirometer post-op encouraged 94% on RA, no wheezing Monitor (4) Chewing tobacco use: prior use reported but quit prior to surgery. (5) Gout: continue allopurinol Also w/ mildly elevated Cr at baseline on pre-op labs. No regular NSAID use reported. Again, holding AM lisinopril until renal function assessed. Plan Thank you for allowing hospitalist service to participate in the care of Mr Wade. Hospitalist service will follow along in AM. Please call with any questions/concerns. Supervising Physician Co-Signing Physician Notes I personally saw and examined the patient. I verified all vasquez points and agree with Katie Jaramillo PA-C with the following exceptions and/or additions: 63 year old male POD#0 left shoulder arthroplasty. EBL 125ml. No acute concerns O/E HS RRR, no murmurs, Chest CTAB, Abdo SNT A/P VTE/Bowel/Pain management per primary orthopedic team HTN - agree with holding lisinopril pending serial BP measurements T2DM - no change to outpatient pain medications on discharge No change to plan as above History of Present Illness Reason for Consultation: post op management Requesting Physician: Dr Early Attending Physician: Aristeo Early MD History of Present Illness 63yo male with PMHx significant for DM (A1c 5.9, on metformin), asthma, HTN, HLD, anemia, obesity, gout presented for LEFT shoulder replacement with Dr Earyl this morning. EBL 125cc. Patient evaluated post-op in 354, sitting up in bed eating supper. Feeling good. Still with some numbness in his 1st three fingers but improving and fingers mobile, able to squeeze my fingers. No NSAID use, and discussed holding AM lisinopril until renal function assessed. Hx asthma but hasn't had any recent issues, more seasonal in nature. Discussed utilizing incentive spirometer in shoulder surgery to prevent any issues and will have nursing provide. No recent chewing tobacco, reported quitting prior to surgery. No fever/chills, chest pain, shortness of breath, abdominal pain, or nausea at present. No issues w/ eating. Pain controlled with ordered medications. He is anticipating dc tomorrow. Allergies Allergy/AdvReac Type Severity Reaction Status Date / Time meloxicam Allergy Unknown Rash Verified 09/03/23 11:25 omeprazole Allergy Unknown Rash Verified 09/03/23 11:25 Home Medications Medication Instructions Recorded Confirmed Type blood-glucose meter (OneTouch #1 ea 08/12/19 08/21/23 Rx Ultra2 Meter) blood sugar diagnostic (OneTouch #50 ea 03/11/20 08/21/23 Rx Ultra Blue Test Strip) lancets (OneTouch UltraSoft #50 ea 03/11/20 08/21/23 Rx Lancets) probenecid 500 mg-colchicine 0.5 1 tab PO BID PRN gout #60 tabs 03/11/20 09/03/23 Rx mg tablet albuterol sulfate 90 mcg/actuation 1 inh inhalation QID PRN shortness 12/27/22 09/03/23 Rx aerosol inhaler (Ventolin HFA) of breath or wheezing #18 grams labetalol 100 mg tablet 100 mg PO TID #270 tabs 06/05/23 09/03/23 Rx allopurinol 100 mg tablet 100 mg PO QPM 08/08/23 09/03/23 History amlodipine 5 mg tablet 5 mg PO QAM 08/08/23 09/03/23 History aspirin 81 mg chewable tablet 81 mg PO QAM 08/08/23 09/03/23 History atorvastatin 40 mg tablet 40 mg PO QPM 08/08/23 09/03/23 History cholecalciferol (vitamin D3) 25 25 mcg PO QPM 08/08/23 09/03/23 History mcg (1,000 unit) capsule (Vitamin D3) fenofibrate nanocrystallized 145 145 mg PO QPM 08/08/23 09/03/23 History mg tablet (Tricor) lisinopril 40 mg tablet 40 mg PO QAM 08/08/23 09/03/23 History metformin 500 mg tablet 500 mg PO QAM 08/08/23 09/03/23 History multivitamin 1 tab PO QAM 08/08/23 09/03/23 History omega 6-qod-uxm-fish oil 1,200 mg 2,400 cap PO QAM 08/08/23 09/03/23 History (144 mg-216 mg) capsule (Fish Oil) cetirizine 10 mg tablet 10 mg PO QAM PRN allergies 08/17/23 09/03/23 History acetaminophen 500 mg tablet 1,000 mg (2 x 500 mg) PO Q8H pain 09/03/23 Rx #60 tabs cefadroxil 500 mg capsule 500 mg PO BID #28 caps 09/03/23 Rx oxycodone 5 mg tablet 5 - 10 mg (1 - 2 x 5 mg) PO 09/03/23 Rx .Q4h-[id number] PRN pain #30 tabs Patient History Medical History History of gout last episode several yrs ago Asthma rare use of PRN inh; last rescue inhaler use several months ago Diverticulosis denies hx diverticulitis Surgical History History of vasectomy History of colonoscopy History of cataract surgery 08/22/10-Left 02/24/13-Right H/O thumb surgery 08/26/08-Left H/O wrist surgery 08/2010-Right Biceps tendon tear Repair-06/22/03 History of knee surgery 10/23/01-Left (Meniscus Repair) 08/30/05-Right (Meniscus Repair) History of rotator cuff surgery 08/26/08-Left 07/21/13-Right 05/27/19-Left Family History Mother Colorectal cancer Father Myocardial infarction Denies family history of Ovarian cancer Prostate cancer Breast cancer Social History Smoking Status: Former smoker Age Started Using Tobacco: 16; Age Quit Using Tobacco: 19; Smoking End Date: 50 years ago; Second Hand Exposure: Yes ( smokes); Do You Dip or Chew Tobacco: No; Tobacco Cessation Education Requested by Patient: No Hx Alcohol Use: Yes Alcohol type: beer and wine Hx Substance Use: No Preferred Language: Cymro Communication Ability: Effective Visual Impairment: No Limitations Hearing Ability: Normal Java Programmer Required: No Beliefs That Will Affect Care: None marital status: Single Current Living Situation: Spouse current occupational status: employed 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 Feels Safe at Home: Yes Safety Concerns: Feels Safe At This Time caffeine: Yes Dental Care, Regularly: Yes Physical Activity Frequency: Does not Exercise Seatbelt Use: always Sunscreen Use: Yes Assistive Devices: Glasses Physical Exam Physical Exam: General 63yo male sitting up in bed, NAD, eating dinner Head atraumatic, normocephalic, mmm, trachea midline Resp even/unlabored, no w/c/r, on room air 94% CV: RRR, faint systolic murmur, no pitting edema/calf tenderness reported GI: +BS, soft/NT : no duarte MSK/Neuro: dressing to LEFT shoulder c/d/i, drain w/ bloody output noted, fingers mobile, sling in place slight decreased sensation 1st three digits but mobile/able to squeeze my fingers. pulses palpable Psych: AOx3, cooperative with exam Results & Data Results & Data Vital Signs (Past 12 Hours) Vital Signs Temp Pulse Resp BP Pulse Ox O2 Del Method O2 Flow Rate 09/03/23 17:45 36.4 C L 64 14 125/79 94 Room Air 09/03/23 17:05 62 16 126/85 97 Nasal Cannula 2 09/03/23 16:55 36.3 C L 76 18 128/77 94 Room Air 09/03/23 16:45 74 18 141/83 H 98 Oxymask 4 09/03/23 16:35 72 22 142/76 H 98 Oxymask 6 09/03/23 16:25 36.1 C L 65 16 136/72 98 Oxymask 8 09/03/23 11:32 36.9 C 72 20 159/88 H 97 Room Air PG Care Time/CCT Total # of Minutes Spent Total Time Spent with Patient: Total time spent is greater than 50% in coordination of care (as documented) at patient's floor/unit and/or counseling patient: Coding Level of Care Code 49612 IN/OBS CONSULT LVL 3,45M Diagnoses Primary osteoarthritis, left shoulder M19.012 Obesity, diabetes, and hypertension syndrome E11.69; E11.59; E66.9; I10 Asthma J45.909 Chewing tobacco use Z72.0 Gout M10.9
[2023-09-03] MEDS ORDERED: GLUCAGON FOR INJ 1 MG VIAL IM PRN (18:45)
[2023-09-03] MEDS ORDERED: GLUCOSE 40% GEL 15 GM TUBE PO PRN (18:45)
[2023-09-03] MEDS ORDERED: CARBOHYDRATES FOR HYPOGLYCEMIA PO PRN (18:45)
[2023-09-03] MEDS ORDERED: GLUCOSE 10 TAB/TUBE PO PRN (18:45)
[2023-09-03] MEDS ORDERED: DEXTROSE 50% 50 ML SYRINGE IV PRN (18:45)
[2023-09-03] MEDS: INSULIN ASPART PER UNIT CHARGE SC SCH ×2 (19:05→21:06)
[2023-09-03] MEDS: ceFAZolin 2000MG 2,000 MG/15 ML SYR IV SCH (20:57)
[2023-09-03] MEDS: DOCUSATE SODIUM 100 MG CAP PO SCH (20:58)
[2023-09-03] MEDS: LABETALOL HCL 100 MG TAB PO SCH (20:59)
[2023-09-03] MEDS: ACETAMINOPHEN 500 MG TAB PO SCH (21:00)
[2023-09-03] MEDS ORDERED: SENNA 8.6 MG TAB PO SCH (21:00)
[2023-09-03] MEDS ORDERED: CHOLECALCIFEROL 1,000 UNITS 25 MCG TAB PO SCH (21:00)
[2023-09-03] MEDS ORDERED: FENOFIBRATE NANOCRYSTALLIZED 145 MG TABLET PO SCH (21:00)
[2023-09-03] MEDS ORDERED: ATORVASTATIN 40 MG TAB PO SCH (21:00)
--- NOTE | 2023-09-03 21:09 | XRay Report ---
XR shoulder LT min 2V routine CLINICAL HISTORY: Post shoulder surgery TECHNIQUE: 3 views of the left shoulder were obtained. Comparison: Comparison is made to shoulder radiograph 10/14/2015 FINDINGS: Patient is status post shoulder arthroplasty with expected postsurgical changes including soft tissue swelling and subcutaneous emphysema. No periarticular lucency or hardware fracture is seen. IMPRESSION: Expected postoperative appearance status post placement of shoulder arthroplasty. ACT 112: Negative or not required by law. Electronically signed by: Neftaly Polo M.D. 09/03/2023 9:08 PM
[2023-09-04] MEDS: ACETAMINOPHEN 500 MG TAB PO SCH (05:15)
[2023-09-04] MEDS: ceFAZolin 2000MG 2,000 MG/15 ML SYR IV SCH (05:16)
[2023-09-04] MEDS: SODIUM CHLORIDE 0.9% 1,000 ML IV SCH (05:19)
--- NOTE | 2023-09-04 07:29 | Orthopedic Progress Note ---
Date of Service September 04, 2023 Assessment & Plan (1) Status post total replacement of left shoulder: Plan: 63 yo male stable POD #1 s/p left TSA 1. Med management 2. DVT prophylaxis- ASA, SCDs 3. PT/OT 4. D/C planning- home w/ OPPT Admission and Anticipated Discharge Date Admission Date: September 03, 2023 Subjective Pt resting in bed, pain controlled, denies complaints Physical Exam Physical Exam: Dressing/drain intact, drain output ~ 50cc, fingers mobile, NVI Results & Data Vital Signs (Past 12 Hours) Vital Signs Temp Pulse Pulse Resp BP Pulse Ox O2 Del Method 09/04/23 04:44 36.7 C 76 18 116/71 93 Room Air 09/04/23 00:01 36.5 C 78 18 129/77 94 Room Air 09/03/23 20:20 36.5 C 75 18 137/80 94 Room Air Laboratory Results 09/03/23 09/03/23 09/03/23 Range/Units 20:40 18:27 16:25 POC Glucose 201 H 144 H 115 H (70-99) mg/dl 09/03/23 Range/Units 11:33 POC Glucose 112 H (70-99) mg/dl
[2023-09-04 07:47] LABS: Basophils # (auto) 0.02 K/uL (0.00-0.20); Basophils % (auto) 0.2 %; Hematocrit (blood only) 35.5 % (42.0-52.0); Hemoglobin 11.7 g/dl (14.0-18.0); Immature Granulocytes # (auto) 0.07 K/uL (0.01-0.20); Immature Granulocytes % (auto) 0.6 %; Lymphocytes # (auto) 0.81 K/uL (1.20-3.40); Lymphocytes % (auto) 6.5 %; Mean Corpuscular Hemoglobin 30.9 pg (25.0-34.0); Mean Corpuscular Volume 93.7 fL (80.0-100.0); Mean Platelet Volume 9.5 fL (9.4-12.4); Monocytes # (auto) 0.82 K/uL (0.11-0.59); Monocytes % (auto) 6.5 %; Neutrophils # (auto) 10.81 K/uL (1.40-6.50); Neutrophils % (auto) 86.2 %; Platelet Count 233 K/uL (130-400); RDW Coefficient of Variation 13.8 % (11.5-14.5); RDW Standard Deviation 47.2 fL (36.4-46.3); Red Blood Count 3.79 M/uL (4.70-6.10); White Blood Count 12.53 K/ul (4.8-10.8)
[2023-09-04 07:57] LABS: BUN Creatinine Ratio 18.4 (10-20); Calcium 8.9 mg/dl (8.6-10.3); Creatinine Clr Calc Pharmacy 52.1 ml/min; Est GFR (African American) 54.9 ml/min; Est GFR (Non-African American) 47.4 ml/min; Potassium 4.4 mmol/L (3.5-5.1)
[2023-09-04] MEDS: DOCUSATE SODIUM 100 MG CAP PO SCH (08:47)
[2023-09-04] MEDS: LABETALOL HCL 100 MG TAB PO SCH (08:48)
[2023-09-04] MEDS: INSULIN ASPART PER UNIT CHARGE SC SCH (08:53)
--- NOTE | 2023-09-04 08:57 | Hospitalist Progress Note ---
Date of Service September 04, 2023 Assessment & Plan (1) Primary osteoarthritis, left shoulder: Plan: s/p Left OVO Motion stemless Total Shoulder Arthroplasty, Open revision Subacromial Decompression, subacromial Bursectomy and excisional debridement subacromial suture material and primary Biceps tenosynovectomy and Tenodesis, debridement glenoid labral tear(Left) - Aristeo Early MD EBL 125cc. Hemovac output 50cc WBC 12.5k, suspect reactive from surgery. Afebrile. Hgb 13.1--> 11.7, acute blood loss anemia from surgery and suspect aspect of dilution from IVF Pain control/bowel regimen/PT/OT/DVT prophylaxis per primary service Asked RN to provide incentive spirometer to prevent any issues following shoulder surgery, now on room air and remaining. Discussed holding his lisinopril at dc, BPs stable, and f/u with primary care prior to resuming. No issues w/ urination, clear in color. Could be new baseline but rec f/u PCP. Denies any issues w/ retention (2) Obesity, diabetes, and hypertension syndrome: Plan: DM A1c 5.9 Home meformin on hold, pharmacy consulted for glycemic control Monitor BSGs HTN BP stable 125/79 Home medications include amlodipine 5mg, labetalol 100mg TID, lisinopril 40mg daily --> Placed hold on lisinopril 40mg for AM given [employer]ing [employer] 1.43 on pre-op labs until repeat labs post-op Cr 1.52 and BP stable in setting of pain/control at 128/78 and would rec holding lisinopril at d/c and further discuss with primary care alternatives. No NSAID use reported. Also could consider holding metformin temporarily No reported urinary retention, voiding without difficulty. Messaged ortho to hold lisinopril at dc and discussed w/ patient and f/u PCP HLD Continue Lipitor 40mg/ASA 81mg daily (3) Asthma: Plan: continue home inhaler as needed, takes zyrtec prn and reports more seasonal symptoms but no recent exacerbations or need for inhaler and reports can't remember last time he had an issue Incentive spirometer post-op encouraged 95% on RA, no wheezing Monitor (4) Chewing tobacco use: Plan: prior use reported but quit prior to surgery. (5) Gout: Plan: continue allopurinol Also w/ mildly elevated Cr at baseline on pre-op labs. No regular NSAID use reported. Plan Thank you for allowing hospitalist service to participate in the care of Mr Wade. Hospitalist service will sign off at this time. Please call with any questions/concerns. Admission and Anticipated Discharge Date Admission Date: September 03, 2023 Subjective Patient evaluated this morning, doing well. Pain control. Numbness to fingers improving, still some in thumb/index finger. No fever/chills, chest pain, shortness of breath, abdominal pain. Not passing gas but has bowel sounds. Encourage continued bowel regimen. Physical Exam 2 Physical Exam: General 63yo male sitting up in bed, NAD, eating dinner Head atraumatic, normocephalic, mmm, trachea midline Resp even/unlabored, no w/c/r, on room air 94% CV: RRR, faint systolic murmur, no pitting edema/calf tenderness reported GI: +BS, soft/NT : no duarte MSK/Neuro: dressing to LEFT shoulder c/d/i, drain w/ bloody output noted, fingers mobile, sling in place slight decreased sensation 1st three digits (improving) but mobile/able to squeeze my fingers. pulses palpable Psych: AOx3, cooperative with exam Results & Data Results & Data Vital Signs (Past 12 Hours) Vital Signs Temp Pulse Resp BP Pulse Ox O2 Del Method 09/04/23 07:54 36.7 C 76 16 128/78 95 Room Air 09/04/23 04:44 36.7 C 76 18 116/71 93 Room Air 09/04/23 00:01 36.5 C 78 18 129/77 94 Room Air Laboratory Results 09/04/23 07:20 09/04/23 07:20 PG Care Time/CCT Total # of Minutes Spent Total Time Spent with Patient: Total time spent is greater than 50% in coordination of care (as documented) at patient's floor/unit and/or counseling patient: Coding Level of Care Code 90905 SUB INP/OBS CARE 2/35MIN Diagnoses Primary osteoarthritis, left shoulder M19.012 Obesity, diabetes, and hypertension syndrome E11.69; E11.59; E66.9; I10 Asthma J45.909 Chewing tobacco use Z72.0 Gout M10.9
[2023-09-04] MEDS ORDERED: NON-FORMULARY MEDICATION (Multivitamin Tablet) PO SCH (09:00)
[2023-09-04] MEDS ORDERED: lisinopril 40 MG TAB PO SCH (09:00)
[2023-09-04] MEDS ORDERED: ASPIRIN 81 MG CHEW PO SCH (09:00)
[2023-09-04] MEDS ORDERED: MULTIVITAMIN TAB PO SCH (09:00)
[2023-09-04] MEDS ORDERED: amLODIPine BESYLATE 5 MG TAB PO SCH (09:00)
[2023-09-04] MEDS ORDERED: allopurinoL 100 MG TAB PO SCH (21:00)
--- NOTE | 2023-09-05 15:31 | Discharge Summary ---
Date of Service September 05, 2023 Admission HPI Per Admitting Provider 63-year-old male with past medical history significant for asthma, high cholesterol, hypertension who presents with ongoing left shoulder pain. Pain is interfering with his daily activities. He has prior history of arthroscopy with rotator cuff repair. He would like to proceed with surgical management. Patient denies headaches, sweats, fevers, chills, double vision, blurred vision, cough, sore throat, dysphagia, chest pain, sob, wheezing, n/v/d/c, numbness, tingling, fatigue, urinary symptoms, mood disorders. ROS positive for left shoulder pain and stiffness. Admission Exam Per Admitting Provider Constitutional: well developed and well nourished; no acute distress Eyes: PERRL, conjunctivae normal, anicteric sclerae ENMT: external ear and nose normal, oropharynx normal Neck: trachea midline, no thyromegaly Respiratory: normal respiratory effort, lungs clear to auscultation Cardiovascular: RRR, no murmur, no edema Musculoskeletal: Left shoulder: Anterior glenoid tenderness. Positive impingement signs. Crepitation with range of motion. Active painful range of motion. Forward flexion and abduction and 180 degrees. Pain with strength testing. 5 -/5 abduction, 4+/5 external rotation, 5/5 internal rotation. Skin: no rashes, warm and dry Neurologic: patellar DTR's 2+ bilat, sensation intact Psychiatric: A+Ox3, euthymic affect Principal Diagnosis Left shoulder osteoarthritis Discharge Exam Dressing/drain intact, drain output ~ 50cc, fingers mobile, NVI Discharge Data Allergies Allergy/AdvReac Type Severity Reaction Status Date / Time meloxicam Allergy Unknown Rash Verified 09/03/23 11:25 omeprazole Allergy Unknown Rash Verified 09/03/23 11:25 Consultations 08/29/23 16:16 Consult Hospitalist Routine Procedures Performed Operation Date: 09/03/23 12:30 Actual Procedures p Left Total Shoulder Arthroplasty, Open Subacromial Decompression, Bursectomy and Biceps Tenodesis(Left) - Aristeo Early MD Ordered Studies 09/03/23 05:00 US - OR guided needle placemen Routine Hospital Course (1) Status post total replacement of left shoulder: 63 yo male stable POD #1 s/p left TSA 1. Med management 2. DVT prophylaxis- ASA, SCDs 3. PT/OT 4. D/C planning- home w/ OPPT Lab Results 09/03/23 09/03/23 09/03/23 Range/Units 11:33 16:25 18:27 WBC (4.8-10.8) K/ul RBC (4.70-6.10) M/uL Hgb (14.0-18.0) g/dl Hct (42.0-52.0) % MCV (80.0-100.0) fL MCH (25.0-34.0) pg MCHC (32.0-36.0) g/dL RDW Std Deviation (36.4-46.3) fL RDW Coeff of Linda (11.5-14.5) % Plt Count (130-400) K/uL MPV (9.4-12.4) fL Immature Gran % (Auto) % Neut % (Auto) % Lymph % (Auto) % [place] % (Auto) % Eos % (Auto) % Baso % (Auto) % Neut # (Auto) (1.40-6.50) K/uL Lymph # (Auto) (1.20-3.40) K/uL [place] # (Auto) (0.11-0.59) K/uL Eos # (Auto) (0.00-0.50) K/uL Baso # (Auto) (0.00-0.20) K/uL Immature Gran # (Auto) (0.01-0.20) K/uL Sodium (136-145) mmol/L Potassium (3.5-5.1) mmol/L Chloride (98-107) mmol/L Carbon Dioxide (21-32) mmol/L Anion Gap (3-11) BUN (6-23) mg/dl Creatinine (0.6-1.4) mg/dl Est Cr Clr Drug Dosing ml/min Est GFR ( Amer) ml/min Est GFR (Non-Af Amer) ml/min BUN/Creatinine Ratio (10-20) Glucose (70-99(Fasting)) mg/dl POC Glucose 112 H 115 H 144 H (70-99) mg/dl Calcium (8.6-10.3) mg/dl 25-OH Vitamin D Total (30-100) ng/ml 12/18/23 12/19/23 12/19/23 Range/Units 20:40 07:20 07:41 WBC 12.53 H (4.8-10.8) K/ul RBC 3.79 L (4.70-6.10) M/uL Hgb 11.7 L (14.0-18.0) g/dl Hct 35.5 L (42.0-52.0) % MCV 93.7 (80.0-100.0) fL MCH 30.9 (25.0-34.0) pg MCHC 33.0 (32.0-36.0) g/dL RDW Std Deviation 47.2 H (36.4-46.3) fL RDW Coeff of Linda 13.8 (11.5-14.5) % Plt Count 233 (130-400) K/uL MPV 9.5 (9.4-12.4) fL Immature Gran % (Auto) 0.6 % Neut % (Auto) 86.2 % Lymph % (Auto) 6.5 % [place] % (Auto) 6.5 % Eos % (Auto) 0.0 % Baso % (Auto) 0.2 % Neut # (Auto) 10.81 H (1.40-6.50) K/uL Lymph # (Auto) 0.81 L (1.20-3.40) K/uL [place] # (Auto) 0.82 H (0.11-0.59) K/uL Eos # (Auto) 0.00 (0.00-0.50) K/uL Baso # (Auto) 0.02 (0.00-0.20) K/uL Immature Gran # (Auto) 0.07 (0.01-0.20) K/uL Sodium 139 (136-145) mmol/L Potassium 4.4 (3.5-5.1) mmol/L Chloride 109 H (98-107) mmol/L Carbon Dioxide 22 (21-32) mmol/L Anion Gap 8 (3-11) BUN 28 H (6-23) mg/dl Creatinine 1.52 H (0.6-1.4) mg/dl Est Cr Clr Drug Dosing 52.1 ml/min Est GFR ( Amer) 54.9 ml/min Est GFR (Non-Af Amer) 47.4 ml/min BUN/Creatinine Ratio 18.4 (10-20) Glucose 134 H (70-99(Fasting)) mg/dl POC Glucose 201 H 155 H (70-99) mg/dl Calcium 8.9 (8.6-10.3) mg/dl 25-OH Vitamin D Total 33.9 (30-100) ng/ml 09/04/23 Range/Units 11:22 WBC (4.8-10.8) K/ul RBC (4.70-6.10) M/uL Hgb (14.0-18.0) g/dl Hct (42.0-52.0) % MCV (80.0-100.0) fL MCH (25.0-34.0) pg MCHC (32.0-36.0) g/dL RDW Std Deviation (36.4-46.3) fL RDW Coeff of Linda (11.5-14.5) % Plt Count (130-400) K/uL MPV (9.4-12.4) fL Immature Gran % (Auto) % Neut % (Auto) % Lymph % (Auto) % [place] % (Auto) % Eos % (Auto) % Baso % (Auto) % Neut # (Auto) (1.40-6.50) K/uL Lymph # (Auto) (1.20-3.40) K/uL [place] # (Auto) (0.11-0.59) K/uL Eos # (Auto) (0.00-0.50) K/uL Baso # (Auto) (0.00-0.20) K/uL Immature Gran # (Auto) (0.01-0.20) K/uL Sodium (136-145) mmol/L Potassium (3.5-5.1) mmol/L Chloride (98-107) mmol/L Carbon Dioxide (21-32) mmol/L Anion Gap (3-11) BUN (6-23) mg/dl Creatinine (0.6-1.4) mg/dl Est Cr Clr Drug Dosing ml/min Est GFR ( Amer) ml/min Est GFR (Non-Af Amer) ml/min BUN/Creatinine Ratio (10-20) Glucose (70-99(Fasting)) mg/dl POC Glucose 121 H (70-99) mg/dl Calcium (8.6-10.3) mg/dl 25-OH Vitamin D Total (30-100) ng/ml Total Time Total Time Spent Total Time Spent (In Minutes): 20 Discharge Plan Discharge Items Patient Disposition: Home - Self-Care Reason For Visit: POST OP Discharge Diagnosis: Left shoulder osteoarthritis Activity: Per Instructions section Non-emergency contact: Surgeon Call non-emergency contact if: you have any medication questions, your pain is concerning for you, you have a fever, your temperature is above 101, your wound has increased redness and your wound has increased drainage Follow-up/Referrals: Eris Prieto DO [Primary Care Provider] - Diet: Regular Addtl Attending Provider Instructions: ACTIVITY RECOMMENDATIONS: SELF CARE INSTRUCTIONS AFTER TOTAL SHOULDER ARTHROPLASTY A. You may do daily exercises as taught in physical therapy while in hospital. No lifting with the operative arm. Please schedule your outpatient physical therapy appointment to begin within 2-3 days after leaving the hospital. Specific restrictions will be written on your physical therapy prescription that is provided to you. B. You are to wear your sling/immobilizer at all times EXCEPT when performing your daily exercises, participating in physical therapy and for hygiene purposes. C. You may perform dry, daily dressing changes. Please keep your incision covered. You may shower 48 hours after surgery. Do not apply soap or any ointment/lotions directly over incision. Do not soak incision in bath tub/swimming pool. D. You may use ice as needed to operative shoulder. SPECIAL CARE INSTRUCTIONS: MEDICATION INSTRUCTIONS: VERY IMPORTANT TO READ AND REVIEW A. There are a few signs you need to watch for after you are home. Call [facility] at [phone] if you experience any of the followin. Increased severe shoulder pain. Some pain is expected especially when you exercise. 2. Increased swelling in you shoulder or arm; pain or swelling in either upper extremity. 3. Any fluid drainage from the incision. 4. Shortness of breath or chest pain. B. Please call [facility] at [phone] if you have any questions or concerns about your operation or recovery. C. Call your physician if: 1. Temperature is greater than 101 degrees (F). 2. Pain is not relieved by prescribed pain medications. 3. Increase drainage or redness from incision. 4. Unanswered questions or concerns. FOLLOW UP VISIT: Please call [facility] at [phone] to schedule a follow up appointment with Dr. Early or his PA in 12-14 days from your surgery date. Pending Studies at Discharge: No Stand-Alone Forms: My [facility], Pain - Opioid Pain Management, Smoking Cessation Medications and DC Order Prescriptions: New cefadroxil 500 mg capsule 500 mg PO BID Qty: 28 0RF oxycodone 5 mg tablet 5 - 10 mg PO .Q4h-6h MDD 6 PRN (Reason: pain) Qty: 30 0RF Rx Instructions: Ongoing therapy, Dr. Early supervising acetaminophen 500 mg tablet 1,000 mg PO Q8H Qty: 60 0RF Continued (DME) blood-glucose [place] M[place] [facility] [place] .R[place]TE .MEDSUPPLY Qty: 1 0RF Rx Instructions: Test blood sugar once daily labetalol 100 mg tablet 100 mg PO TID Qty: 270 3RF albuterol sulfate [Ventolin HFA] 90 mcg/actuation HFA aerosol inhaler 1 inh INH QID PRN (Reason: shortness of breath or wheezing) Qty: 18 5RF probenecid-colchicine 500-0.5 mg tablet 1 tab PO BID PRN (Reason: gout) Qty: 60 2RF (DME) OneTouch Ultra Blue Test Strip Strip See Rx Instructions .ROUTE .MEDSUPPLY Qty: 50 5RF Rx Instructions: Test blood sugar once daily (DME) lancets [OneTouch UltraSoft Lancets] [facility] [place] Rx Instructions .ROUTE .MEDSUPPLY Qty: 50 5RF Rx Instructions: Test blood sugar once daily atorvastatin 40 mg tablet 40 mg PO QPM metformin 500 mg tablet 500 mg PO QAM amlodipine 5 mg tablet 5 mg PO QAM Rx Instructions: TAKE 1 TABLET BY MOUTH DAILY. allopurinol 100 mg tablet 100 mg PO QPM aspirin 81 mg tablet,chewable 81 mg PO QAM fenofibrate nanocrystallized [Tricor] 145 mg tablet 145 mg PO QPM multivitamin Tablet 1 tab PO QAM cholecalciferol (vitamin D3) [Vitamin D3] 25 mcg (1,000 unit) Capsule 25 mcg PO QPM omega 9-hrt-wuo-fish oil [Fish Oil] 1,200 (144-216) mg Capsule 2,400 cap PO QAM cetirizine 10 mg Tablet 10 mg PO QAM PRN (Reason: allergies) Held lisinopril 40 mg tablet 40 mg PO QAM Hold Instructions: Resume on 09/07/23. please hold until seen by primary care or if BP elevated Discharge Orders: Discharge Order (Routine); Ordered 09/04/23 Ordered By: Giovanni Ramirez Admission Data Admit Date/Time: 09/03/23 16:23 Attending Provider: Aristeo Early Admit Provider: Aristeo Early Primary Care Provider: Eris Prieto Other Providers: Gera Gomez Other Interventions: Discharge Summary Assessment (RN) Last Done: 09/04/23 10:33
== END 2023-09-04 12:02 | disposition home or self-care (01) ==
LOC: ASU 10:57 → 3W 10:57
DX: Z87.891 Personal history of nicotine dependence; M19.012 Primary osteoarthritis, left shoulder; Z88.8 Allergy status to other drugs, medicaments and biological substances; Z79.82 Long term (current) use of aspirin; Z79.84 Long term (current) use of oral hypoglycemic drugs; M75.42 Impingement syndrome of left shoulder; Z79.899 Other long term (current) drug therapy; M75.52 Bursitis of left shoulder